=== PATIENT | female | born 1980 | race Caucasian/White ===

== ENCOUNTER 2019-06-10 17:25 | Emergency (ER) | payer MEDICAID ==
[2019-06-10] MEDS ORDERED: CYCLOBENZAPRINE 10 MG TABLET PO STA (21:01)
[2019-06-10] MEDS ORDERED: KETOROLAC 30 MG/ML VIAL IVP STA (21:01)
[2019-06-10 21:22] LABS: BASOPHILS # (AUTO) 0.1 10^3/uL (0.0-0.1); BASOPHILS % (AUTO) 0.6 %; EOSINOPHILS # (AUTO) 0.1 10^3/uL (0.0-0.7); EOSINOPHILS % (AUTO) 1.7 %; HGB - HEMOGLOBIN 14.8 g/dL (12.0-16.0); LYMPHOCYTES # (AUTO) 2.4 10^3/uL (1.5-3.5); LYMPHOCYTES % (AUTO) 29.4 %; MEAN CORPUSCULAR HEMOGLOBIN 31.7 pg (27.0-31.0); MEAN CORPUSCULAR HGB CONC 34.4 g/dL (32.0-36.0); MEAN CORPUSCULAR VOLUME 92.1 fL (81.0-99.0); MEAN PLATELET VOLUME 10.7 fL (7.9-10.8); MONOCYTES # (AUTO) 0.5 10^3/uL (0.0-1.0); MONOCYTES % (AUTO) 6.6 %; NEUTROPHILS % (AUTO) 61.5 %; PLT - PLATELET COUNT 180 10^3/uL (130-450); RED BLOOD COUNT 4.67 10^6/uL (4.20-5.40); RED CELL DISTRIBUTION WIDTH 11.8 % (12.0-15.0); WHITE BLOOD COUNT 8.1 x10^3/uL (4.8-10.8)
[2019-06-10 21:43] LABS: CALCIUM 8.6 mg/dL (8.5-10.3); CREATININE 0.6 mg/dL (0.4-1.0); CRP - C-REACTIVE PROTEIN 1.4 mg/dL (0-1.0)
--- NOTE | 2019-06-10 22:18 | ED Physician Documentation ---
PD HPI BACK PAIN - Stated complaint Stated Complaint: BACK PX - Chief complaint Chief Complaint: Back Pain - History obtained from History obtained from: Patient - History of Present Illness Timing - onset: Today Timing - duration: Days Timing - details: Abrupt onset, Other (woke up this morning with bilateral lower back pain) Severity Comments: moderate Location: Lower (bilateral) Quality: Pain, Spasm Associated symptoms: No: Fever, Weakness, Numbness, Incontinent of urine, Unable to urinate, Hematuria, Incontinent of stool Improves with: Rest, Position Worsened by: Movement Contributing factors: Other (thinks she may have strained her back from coughing hard as she currently has a sinus infection and cough.) Similar symptoms before: Other (has a hx of chronic low back pain but it hasn't been hurting until this morning) Recently seen: Not recently seen - Treatment prior to arrival Treatment prior to arrival: ibuprofen at 4pm without relief Review of Systems Ten Systems: 10 systems reviewed and negative Constitutional: denies: Fever Nose: reports: Congestion Throat: denies: Sore throat Cardiac: denies: Chest pain / pressure Respiratory: reports: Cough. denies: Dyspnea GI: denies: Abdominal Pain : denies: Frequency, Incontinent Skin: reports: Reviewed and negative. denies: Rash Musculoskeletal: reports: Reviewed and negative Neurologic: denies: Focal weakness, Numbness Psychiatric: reports: Reviewed and negative Endocrine: reports: Reviewed and negative Immunocompromised: reports: Other (diabetic) PD PAST MEDICAL HISTORY - Past Medical History Past Medical History: Yes Endocrine/Autoimmune: Type 2 diabetes GI: Other Musculoskeletal: Fibromyalgia, Other Other Past Medical History: IBS; Degenerative disc disease; currently DX w/ Sinusitis - Past Surgical History Past Surgical History: Yes /[employer]: section, Tubal ligation, Hysterectomy - Present Medications Home Medications: Ambulatory Orders Medication Instructions Recorded Confirmed Cyclobenzaprine [Flexeril] 10 mg PO TID PRN #20 tablet 06/10/19 RX: Amoxicillin 250 mg PO BID 06/10/19 06/10/19 - Allergies Allergies/Adverse Reactions: Allergies Allergy/AdvReac Type Severity Reaction Status Date / Time No Known Drug Allergies Allergy Verified 06/10/19 18:06 - Social History Does the pt smoke?: Yes Smoking Status: Current every day smoker Does the pt drink ETOH?: Yes Does the pt have substance abuse?: No - Immunizations Immunizations are current?: Yes - POLST Patient has POLST: No PD ED PE NORMAL - Vitals Vital signs reviewed: Yes - General General: Alert and oriented X 3, No acute distress, Well developed/nourished - HEENT HEENT: Pharynx benign - Neck Neck: Supple, no meningeal sign - Cardiac Cardiac: RRR - Respiratory Respiratory: No respiratory distress - Abdomen Abdomen: Soft, Non tender, Non distended - Female Female : Deferred - Rectal Rectal: Deferred - Back Back: No CVA TTP, No spinal TTP - Derm Derm: Normal color, Warm and dry, No rash - Extremities Extremities: No deformity, No edema - Neuro Neuro: Alert and oriented X 3, No motor deficit, No sensory deficit Eye Opening: Spontaneous Motor: Obeys Commands Verbal: Oriented GCS Score: 15 - Psych Psych: Normal mood, Normal affect PD ED PE EXPANDED - Back Back: No: Vertebral tenderness, Soft tissue tenderness, Limited ROM Results - Vitals Vitals: Vital Signs - 24 hr 06/10/19 06/10/19 06/10/19 18:06 21:39 22:26 Temperature 36.5 C 36.9 C Heart Rate 89 67 69 Respiratory 18 18 20 Rate Blood Pressure 160/101 H 144/74 H 152/92 H O2 Saturation 98 99 97 Oxygen O2 Source Room air - Labs Labs: Laboratory Tests 06/10/19 06/10/19 06/10/19 21:10 21:10 21:10 WBC 8.1 RBC 4.67 Hgb 14.8 Hct 43.0 MCV 92.1 MCH 31.7 H MCHC 34.4 RDW 11.8 L Plt Count 180 MPV 10.7 Neut # (Auto) 5.0 Lymph # (Auto) 2.4 Andrew # (Auto) 0.5 Eos # (Auto) 0.1 Baso # (Auto) 0.1 Absolute Nucleated RBC 0.00 Nucleated RBC % 0.0 ESR 10 Sodium 141 Potassium 4.0 Chloride 108 Carbon Dioxide 25 Anion Gap 8.0 BUN 7 Creatinine 0.6 Estimated GFR (MDRD) 111 Glucose 94 Calcium 8.6 C-Reactive Protein 1.4 H normal labs except mildly elevated CRP PD MEDICAL DECISION MAKING - ED course Complexity details: reviewed results, re-evaluated patient, considered differential, d/w patient ED course: ddx- low back strain, epidural abscess, diskitis, back spasm, vertebral compression fx. 38 y/o F diabetic with hx of chronic low back pain with worsening symptoms since this morning, no fever, and no neuro signs or symptoms or red flag symptoms. No trauma or falls. But given pt is a diabetic obtained screening labs for epidural abscess which are largely normal and not consistent with infectious process. Her pain improved in the ED with toradol and cyclobenzaprine. I do suspect this is a muscle strain and will advise the pt to f/u with her PCp for a recheck of her symptoms. She was given return precautions as documented in case of worsening or new concerning symptoms. Departure - Departure Disposition: Home, Self Care Clinical Impression: Strain of lumbar paraspinous muscle Condition: Stable Record reviewed to determine appropriate education?: Yes Instructions: ED Sprain Strain Lumbar Follow-Up: Emmy Jones DO [Primary Care Provider] - Prescriptions: Cyclobenzaprine [Flexeril] 10 mg PO TID PRN #20 tablet PRN Reason: Spasms Comments: Your lab work today was normal and do not suggest a back infection. Your exam and history are most consistent with a back muscle strain. Continue to take tylenol and ibuprofen for pain and you can take cyclobenzaprine (flexeril) as prescribed for spasming. Return to the ED if worsening pain, weakness, numbness, urinary incontinence or new concerning symptoms such as fever. Discharge Date/Time: 06/10/19 22:27
[2019-06-10 22:27] VITALS: BP 152/92
== END 2019-06-10 22:27 | disposition home or self-care (01) ==
LOC: ED 17:25
DX: S39.012A Strain of muscle, fascia and tendon of lower back, initial encounter (principal); X58.XXXA Exposure to other specified factors, initial encounter; E11.9 Type 2 diabetes mellitus without complications; F17.200 Nicotine dependence, unspecified, uncomplicated
CPT/HCPCS: 36415; 80048; 85025; 85651; 86140; 96374; 99283; 99284; A9270

== ENCOUNTER 2020-09-13 12:00 | Outpatient (CLI) | payer MEDICAID | END 2020-09-13 12:01 | disposition home or self-care (01) | LOC: COV 12:00 | PROVIDERS: ATTEND Family Medicine | DX: Z20.828 Contact with and (suspected) exposure to other viral communicable diseases (principal) ==

== ENCOUNTER 2020-10-04 15:07 | Outpatient (CLI) | payer MEDICAID | END 2020-10-04 15:08 | disposition home or self-care (01) | LOC: COV 15:07 | PROVIDERS: ATTEND Family Medicine | DX: R50.9 Fever, unspecified (principal); M79.10 Myalgia, unspecified site; R53.83 Other fatigue; R19.7 Diarrhea, unspecified; R09.81 Nasal congestion; J34.89 Other specified disorders of nose and nasal sinuses; R11.2 Nausea with vomiting, unspecified; Z20.828 Contact with and (suspected) exposure to other viral communicable diseases ==